=== PATIENT | female | born 1970 | race Caucasian/White ===

== ENCOUNTER 2018-03-12 17:06 | Inpatient (IN) | payer OTHER ==
[~2018-03-12] VITALS: Ht 167.6 cm; Wt 76.2 kg
--- NOTE | 2018-03-12 18:29 | NUR ---
DIRECTOR REGULATORY COMPLIANCE PATIENT CAME FROM [facility], VIA AMBULANCE. PATIENT A/OX4, NO DISTRESS NOTED, AMBULATORY WITH STEADY GAIT, DENIES PAIN OR DISCOMFORT AT THIS TIME, NEEDS ATTENDED, KEPT COMFORTABLE, CALL LIGHT WITHIN REACH, VSS, WILL ENDORSE TO CURTAIN STITCHER FOR SALOMON.
[2018-03-12] MEDS ORDERED: Z GUARD REMEDY 2 OZ OINT TP PRN (19:00)
[2018-03-12] MEDS ORDERED: MAG HYDROX/AL HYDROX/SIMETH 30 ML UDC PO PRN (19:00)
[2018-03-12] MEDS ORDERED: HYDROCODONE/APAP 5/325MG 1 EACH TABLET PO PRN (19:00)
[2018-03-12] MEDS ORDERED: ZOLPIDEM TARTRATE 5 MG TABLET PO PRN (19:00)
[2018-03-12] MEDS ORDERED: ONDANSETRON HCL/PF 4 MG/2 ML VIAL IVP PRN (19:00)
[2018-03-12] MEDS ORDERED: MAGNESIUM HYDROXIDE 30 ML UDC PO PRN (19:00)
[2018-03-12 19:01] VITALS: BP 102/62
--- NOTE | 2018-03-12 19:04 | NUR ---
RN NOTES RECEIVE PT IN THE BED A/O X 4, TELE MONITOR WITH READING OF SB 50'S. IN STABLE CONDITION, NOT IN DISTRESS, SAFETY MEASURES IN PLACE. WILL CONTINUE TO MONITOR.
[2018-03-12 19:47] LABS: BASOPHILS % (AUTO) 0.3 % (0.0-2.0); EOSINOPHILS % (AUTO) 0.1 % (0.0-6.0); HEMATOCRIT 36 % (33-45); HEMOGLOBIN 12.2 g/dL (11.5-14.8); LYMPHOCYTES # (AUTO) 2.3 /CMM (0.8-4.8); LYMPHOCYTES % (AUTO) 35.6 % (20.0-44.0); MEAN CORPUSCULAR HGB CONC 34 g/dl (31.0-36.0); MEAN CORPUSCULAR VOLUME 94 fL (82-100); MONOCYTES # (AUTO) 0.4 /CMM (0.1-1.30); MONOCYTES % (AUTO) 5.6 % (2.0-12.0); NEUTROPHILS # (AUTO) 3.8 /CMM (1.8-8.9); NEUTROPHILS % (AUTO) 58.4 % (43.0-81.0); PLATELET COUNT (AUTO) 162 /CMM (150-450); RED BLOOD CELL COUNT(AUTO) 3.83 MIL/uL (4.0-5.2); WHITE BLOOD COUNT (AUTO) 6.5 K/uL (4.3-11.0)
[2018-03-12 20:00] VITALS: BP 97/53
--- NOTE | 2018-03-12 20:00 | NUR ---
ENVIRONMENTAL COMPLIANCE MANAGER HEAD TO TOE ASSESSMENT IS DONE SKIN IS INTACT, NO BRUISES AND NO PAIN, RESPIRATIONS EVEN AND UNLABORED TOLERATING ROOM AIR 99%. KEPT CLEAN AND DRY AND COMFORT. WILL CONTINUE TO MONITOR
[2018-03-12 20:05] LABS: ALANINE AMINOTRANSFERASE 21 U/L (12-78); ALBUMIN 3.4 g/dL (3.4-5.0); ALKALINE PHOSPHATASE 73 U/L (46-116); ASPARTATE AMINOTRANSFERASE 16 U/L (15-37); BILIRUBIN,DIRECT 0.1 mg/dL (0.0-0.2); BILIRUBIN,TOTAL 0.4 mg/dL (0.2-1.0); CALCIUM, SERUM 8.6 mg/dL (8.5-10.1); CARBON DIOXIDE 28 mmol/L (21-32); CHLORIDE 108 mmol/L (98-107); CREATININE 0.8 mg/dL (0.6-1.3); GLUCOSE 91 mg/dL (74-106); MAGNESIUM 1.7 mg/dL (1.8-2.4); PHOSPHORUS 3.5 mg/dL (2.5-4.9); POTASSIUM 3.7 mmol/L (3.5-5.1); SODIUM SERUM 142 mmol/L (136-145); TOTAL PROTEIN, SERUM 6.1 g/dL (6.4-8.2); UREA NITROGEN, BLOOD 12 mg/dL (7-18)
[2018-03-12] MEDS: IV NS 0.9% 1,000 ML IV PRN (20:22)
[2018-03-13] VITALS (8 sets, daily range): BP systolic 32–112; BP diastolic 45–69
[2018-03-13] MEDS: ACETAMINOPHEN 325 MG TABLET PO PRN ×2 (00:39→15:05)
--- NOTE | 2018-03-13 06:13 | NUR ---
RN CLOSING NOTE PT IN BED RESTING ASLEEP AND EASILY AWAKEN. TOLERATING ROOM AIR 99%. NO S/S OF RESP DISTRESS OR SOB. NO C/O PAIN AT THIS TIME. ALL PT NEEDS ANTICIPATED AND MET. KEPT CLEAN AND DRY AND COMFORT, SAFETY MEASURES IN PLACE, CALL LIGHT WITHIN REACH. WILL ENDORSE TO WINE CONSULTANT FOR SALOMON. Addendum: 03/13/18 at 0614 by JESÚS BERNSTEIN RN WITH SB READING IN THE TELE MONITOR 45'S HOSPITALIST AWARE
[2018-03-13] MEDS: IV NS 0.9% 1,000 ML IV PRN (06:31)
[2018-03-13 06:37] LABS: BASOPHILS % (AUTO) 0.4 % (0.0-2.0); EOSINOPHILS % (AUTO) 0.7 % (0.0-6.0); HEMATOCRIT 35 % (33-45); LYMPHOCYTES # (AUTO) 2.9 /CMM (0.8-4.8); LYMPHOCYTES % (AUTO) 52.6 % (20.0-44.0); MEAN CORPUSCULAR HGB CONC 34 g/dl (31.0-36.0); MEAN CORPUSCULAR VOLUME 93 fL (82-100); MONOCYTES # (AUTO) 0.4 /CMM (0.1-1.30); MONOCYTES % (AUTO) 7.4 % (2.0-12.0); NEUTROPHILS # (AUTO) 2.2 /CMM (1.8-8.9); NEUTROPHILS % (AUTO) 38.9 % (43.0-81.0); PLATELET COUNT (AUTO) 154 /CMM (150-450); RED BLOOD CELL COUNT(AUTO) 3.73 MIL/uL (4.0-5.2); WHITE BLOOD COUNT (AUTO) 5.6 K/uL (4.3-11.0)
[2018-03-13 07:03] LABS: CALCIUM, SERUM 8.2 mg/dL (8.5-10.1); CREATININE 0.7 mg/dL (0.6-1.3); MAGNESIUM 1.7 mg/dL (1.8-2.4); PHOSPHORUS 3.7 mg/dL (2.5-4.9); POTASSIUM 3.9 mmol/L (3.5-5.1)
--- NOTE | 2018-03-13 07:52 | NUR ---
RESIN REMOVER NOTES PATIENT RECEIVED RESTING INSIDE ROOM. SLEEPING, EASILY AROUSABLE THROUGH VERBAL AND TACTILE STIMULI. BREATHING EVEN AND UNLABORED. NO SOB OR ACUTE DISTRESS. PATIENT CALM AND RELAXED. DENIES ANY PAIN OR DISCOMFORT. CONTINUE ON TELEMETRY, HIGHWAY MAINTENANCE SUPERVISOR IN PLACE. WILL CONTINUE TO MONITOR. BED LOCKED AND IN LOW POSITION. BILATERAL UPPER SIDE RAILS UP AND LOCKED. CALL LIGHT WITHIN EASY REACH
[2018-03-13] MEDS: Magnesium 1GM/D5W 100ML PREMIX 100 ML IV SCH ×2 (12:27→14:00)
--- NOTE | 2018-03-13 12:54 | NUR ---
ASH WORKER NOTE PATIENT WITH POSITIVE HCG TEST FROM [facility]. MD AWARE OF RESULT. PER PATIENT, SHE HAS HISTORY OF BILATERAL TUBAL LIGATION AND IS SURE THAT SHE IS NOT SHE HAD NOT BEEN SEXUALLY ACTIVE IN THE PAST YEAR. MD AWARE. NO NEW ORDERS AT THIS TIME. WILL CONTINUE TO MONITOR
--- NOTE | 2018-03-13 16:55 | NUR ---
SOAKER HELPER NOTES ECHOCARDIOGRAM RESULTS RELAYED TO DR. HADDAD AND GAVE OK FOR PATIENT TO DISCHARGE. PATIENT FOR DISCHARGE HOME TODAY. DISCHARGE INSTRUCTIONS AND EDUCATION GIVEN AND VERBALIZED UNDERSTANDING. ALL BELONGINGS COMPLETE, NO REPORT OF MISSING INVENTORY. IV REMOVED WITH MINIMAL BLEEDING NOTED ON SITE. PATIENT LEFT UNIT AT 1650 AMBULATORY, NO ACUTE DISTRESS, DENIES ANY PAIN OR DISCOMFORT, NO SYNCOPAL EPISODE, NO SKIN BREAKDOWN. MD MADE AWARE OF DISCHARGE
--- NOTE | 2018-03-13 16:57 | NUR ---
SITE PROJECT MANAGER NOTES PATIENT ACCOMPANIED BY FAMILY AND NURSING STAFF TO PARKING LOT, LEFT HOSPITAL PREMISES VIA PRIVATE CAR. LEFT IN STABLE CONDITION
== END 2018-03-13 16:55 | disposition home or self-care (01) | DRG 641 ==
LOC: TELE 18:05
PROVIDERS: ADMIT Internal Medicine; ATTEND Internal Medicine
DX: E86.0 Dehydration (principal); R00.1 Bradycardia, unspecified; Z98.51 Tubal ligation status
CPT/HCPCS: 36415; 80048-TC; 80053-TC; 80076-TC; 83735-TC; 84100-TC; 84443-TC; 84484-TC; 85025-TC; 87081-TC; 93307-TC; G0378; J3475; J7030